=== PATIENT | female | born 1935 | race Caucasian/White ===

== ENCOUNTER 2019-07-19 15:22 | Inpatient (IN) | payer MEDICARE, OTHER ==
[2019-07-19] VITALS (9 sets, daily range): BP systolic 120–169; BP diastolic 59–76
[~2019-07-19] VITALS: Ht 167.6 cm; Wt 68.6 kg
[2019-07-19] MEDS ORDERED: ALBUTEROL SULFATE 2.5 MG/3 ML NEBU. NEB PRN (15:45)
[2019-07-19] MEDS ORDERED: HEPARIN 25,000UTS/250ML PREMIX 250 ML IV PRN (15:45)
[2019-07-19] MEDS ORDERED: IV NORMAL SALINE 1000ML BAG 1,000 ML IV SCH (15:45)
[2019-07-19] MEDS ORDERED: HEPARIN for IV BOLUS 10,000 UNIT/10 ML VIAL. IV PRN (15:45)
[2019-07-19] MEDS ORDERED: ACETAMINOPHEN 325 MG TABLET. PO PRN ×2 (15:45→16:45)
[2019-07-19] MEDS ORDERED: ONDANSETRON PF 4 MG/2 ML VIAL. IVP PRN (15:45)
[2019-07-19] MEDS ORDERED: AMITRIPTYLINE HCL 25 MG TABLET. PO PRN (15:45)
[2019-07-19] MEDS ORDERED: ALBU2.5V14 NEB (15:59)
[2019-07-19] MEDS ORDERED: OLME20TA17 PO (15:59)
[2019-07-19] MEDS ORDERED: TIOT18CA IH (15:59)
[2019-07-19] MEDS ORDERED: VENTOLIN HFA18 GM INH (15:59)
[2019-07-19] MEDS ORDERED: DILT60TA PO (15:59)
[2019-07-19] MEDS ORDERED: LOSA100T14 PO (15:59)
[2019-07-19] MEDS ORDERED: MOME13HF2 IH (15:59)
[2019-07-19] MEDS ORDERED: OXYC1TAB19 PO (15:59)
[2019-07-19] MEDS ORDERED: ALPR0.254 PO (15:59)
[2019-07-19] MEDS ORDERED: AMIT25TA PO (15:59)
[2019-07-19 16:05] LABS: HEMATOCRIT 35.7 % (36.0-47.0); HEMOGLOBIN 12.2 g/dL (12.0-15.5); RED BLOOD COUNT 3.77 x10^6/uL (3.50-5.40); RED CELL DISTRIBUTION WIDTH 13.5 % (11.5-14.5); WHITE BLOOD COUNT 7.8 x10^3/uL (4.0-11.0)
--- NOTE | 2019-07-19 16:12 | PDOC1 ---
History and Physical Date of Admission Date of Admission DATE: 07/19/19 TIME: 16:12 Identification/Chief Complaint Chief Complaint transfer here for treatment of NSTEMI AT [facility] with trop elevation 3.4, direct admit to icu Past Medical History Past Medical History SOCIAL HISTORY: long-standing smoking history. She does not drink alcohol or use recreational drugs. stopped smoking 3 yrs ago UNDER STRESS, Daughter had recent DUI CHARGE PMH HTN, CHOLECYSTECTOMY, ANXIETY family hx COPD Cardiovascular: CAD Pulmonary: COPD Psych: Anxiety Family History Family History: Chronic Bronchitis, Hypertension Social History Smoke: Quit ALCOHOL: none Drugs: None Current Medications Current Medications Current Medications Heparin Sodium/ Dextrose 250 ml @ 0 mls/hr CONT PRN IV PER PROTOCOL; Start 07/19/19 at 15:45; Status UNV Heparin Sodium (Porcine) (Heparin Sodium) 1,600 unit PRN Q6HRS PRN IV FOR UFH LEVEL LESS THAN 0.2; Start 07/19/19 at 15:45; Status UNV Sodium Chloride 1,000 ml @ 75 mls/hr [id number] IV ; Start 07/19/19 at 15:45 Ondansetron HCl (Zofran) 4 mg PRN Q4HRS PRN IVP NAUSEA/VOMITING; Start 07/19/19 at 15:45 Acetaminophen (Tylenol) 325 mg PRN Q6HRS PRN PO MILD PAIN / TEMP; Start 07/19/19 at 15:45 Albuterol Sulfate (Ventolin Neb Soln) 2.5 mg PRN Q4HRS PRN NEB SHORTNESS OF BREATH; Start 07/19/19 at 15:45 Methylprednisolone Sodium Succinate (SOLU-Medrol 125MG VIAL) 60 mg Q12HR IV ; Start 07/19/19 at 21:00 Lorazepam (Ativan) 0.5 mg TID PO ; Start 07/19/19 at 21:00 Aspirin (Children'S Aspirin) 81 mg DAILYWBKFT PO ; Start 07/20/19 at 08:00 Metoprolol Succinate (Toprol Xl) 50 mg DAILY PO ; Start 07/20/19 at 09:00 Amitriptyline HCl (Elavil) 25 mg PRN QHS PRN PO INSOMNIA; Start 07/19/19 at 15:45 Diltiazem HCl (Cardizem 24hr Cd) 120 mg DAILY PO ; Start 07/20/19 at 09:00 Losartan Potassium (Cozaar) 50 mg DAILY PO ; Start 07/20/19 at 09:00 Active Scripts Active Reported Losartan Potassium 100 Mg Tablet 100 Mg PO DAILY Alprazolam 0.25 Mg Tablet 1 Tab PO TID Ventolin Hfa Inhaler (Albuterol Sulfate) 18 Gm Hfa.aer.ad 2 Puff INH Q4HRS Albuterol Sulfate Conc Neb Soln (Albuterol Sulfate) 2.5 Mg/0.5 Ml Vial.neb 1 Vial NEB BID Spiriva (Tiotropium [place]) 18 Mcg Cap.w.dev 1 Cap IH DAILY Dulera 100 Mcg/5 Mcg Inhaler (Mometasone/Formoterol) 13 Gm Hfa.aer.ad 2 Puff IH BID Benicar (Olmesartan Medoxomil) 20 Mg Tablet 1 Tab PO DAILY 30 Days Diltiazem Hcl Tablet (Diltiazem Hcl) 60 Mg Tablet 120 Mg PO BID Amitriptyline Hcl 25 Mg Tablet 1 Tab PO QHS Percocet 7.5-325 Mg Tablet (Oxycodone/Acetaminophen) 1 Each Tablet 1 Tab PO QIDPRN PRN MDD 4 Tablet(s) 5 Days Allergies Allergies: Coded Allergies: lisinopril (Verified Allergy, Mild, cough, 03/28/15) ROS General: No: Chills, Night Sweats, Fatigue, Malaise, Appetite, Other PSYCHOLOGICAL ROS: YES: Anxiety, Depression Eyes: No Blurry vision, No Decreased vision, No Double vision, No Dry eyes, No Excessive tearing, No Eye Pain, No Itchy Eyes, No Loss of vision, No Photophobia, No Scotomata, No Uses contacts, No Uses glasses, No Other HEENT: No: Heacaches, Visual Changes, Hearing change, Nasal congestion, Nasal discharge, Oral lesions, Sinus pain, Sore Throat, Epistaxis, Sneezing, Snoring, Tinnitus, Vertigo, Vocal changes, Other Breast: No New/Changing Breast Lumps, No Nipple changes, No Nipple discharge, No Other Respiratory: YES: Cough; No: Hemoptysis, Orthopnea, Pleuritic Pain, Shortness of breath, SOB with excertion, Sputum Changes, Stridor, Tachypnea, Wheezing, Other Cardiovascular: No Chest Pain, No Palpitations, No Orthopnea, No Paroxysmal Noc. Dyspnea, No Edema, No Lt Headedness, No Other Gastrointestinal: No Nausea, No Vomiting, No Abdominal Pain, No Diarrhea, No Constipation, No Melena, No Hematochezia, No Other Genitourinary: No Dysuria, No Frequency, No Incontinence, No Hematuria, No R etention, No Discharge, No Urgency, No Pain, No Flank Pain, No Other, No , No , No , No , No , No , No Musculoskeletal: No Gait Disturbance, No Joint Pain, No Joint Stiffness, No Joint Swelling, No Muscle Pain, No Muscular Weakness, No Pain In:, No Swelling In:, No Other Neurological: No Behavorial Changes, No Bowel/Bladder ControlChng, No Confusion, No Dizziness, No Gait Disturbance, No Headaches, No Impaired Coord/balance, No Memory Loss, No Numbness/Tingling, No Seizures, No Speech Problems, No Tremors, No Visual Changes, No Weakness, No Other Physical Exam General: Alert, Oriented X3, Cooperative, No acute distress HEENT: PERRLA, EOMI, Mucous membr. moist/pink Lungs: Clear to auscultation, Normal air movement Heart: S1S2, RRR, no thrills, no gallops Breasts: Not examined Abdomen: Normal bowel sounds, Soft, No tenderness, No hepatosplenomegaly Rectal Exam: not examined PELVIC: Examination not indicated Extremities: No cyanosis Skin: No significant lesion Neuro: Normal speech, Sensation intact, Cranial nerves 3-12 NL Psych/Mental Status: Mental status NL, Mood NL Labs Labs Laboratory Tests Test 07/19/19 16:00 White Blood Count 7.8 x10^3/uL (4.0-11.0) Red Blood Count 3.77 x10^6/uL (3.50-5.40) Hemoglobin 12.2 g/dL (12.0-15.5) Hematocrit 35.7 % (36.0-47.0) Mean Corpuscular Volume 95 fL (79-100) Mean Corpuscular Hemoglobin 32 pg (25-35) Mean Corpuscular Hemoglobin Concent 34 g/dL (31-37) Red Cell Distribution Width 13.5 % (11.5-14.5) Platelet Count 296 x10^3/uL (140-400) Laboratory Tests Test 07/19/19 16:00 White Blood Count 7.8 x10^3/uL (4.0-11.0) Red Blood Count 3.77 x10^6/uL (3.50-5.40) Hemoglobin 12.2 g/dL (12.0-15.5) Hematocrit 35.7 % (36.0-47.0) Mean Corpuscular Volume 95 fL (79-100) Mean Corpuscular Hemoglobin 32 pg (25-35) Mean Corpuscular Hemoglobin Concent 34 g/dL (31-37) Red Cell Distribution Width 13.5 % (11.5-14.5) Platelet Count 296 x10^3/uL (140-400) VTE Prophylaxis Ordered VTE Prophylaxis Devices: No VTE Pharmacological Prophylaxi: Yes Assessment/Plan Assessment/Plan IMPRESSION 1. ACUTE NSTEMI 2. COPD hx 100 pack yrs 3. REMOTE tobacco abuse stopped 2016 4. 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 chronic hypercapnia, hx severe underlying chronic obstructive pulmonary disease contributing to the hypercapnia. 6. htn 7. chronic hypoxic resp failure plan admit icu bed cardiology consulted metoprolol 50mg po daily dvt prophylaxis o2 support cardiac cath in AM CONT HOME MEDS FLP 36 min cc time KAREY DÍAZ MD Jul 19, 2019 16:12
[2019-07-19] MEDS ORDERED: guaiFENesin ORAL 200 MG/10 ML LIQUID. PO PRN (16:45)
[2019-07-19] MEDS ORDERED: ONDANSETRON PF 4 MG/2 ML VIAL. IV PRN (16:45)
[2019-07-19] MEDS ORDERED: DOCUSATE SODIUM 100 MG CAPSULE. PO PRN (16:45)
[2019-07-19] MEDS ORDERED: 0.9 % SODIUM CHLORIDE 10 ML DISP.SYRIN. IV PRN (16:45)
[2019-07-19] MEDS: IV NORMAL SALINE 1000ML BAG 1,000 ML IV SCH (17:23)
[2019-07-19] MEDS: IPRATRPIUM/ALBUTEROL 0.5/2.5MG 3 ML NEBU. NEB SCH (20:00)
[2019-07-19] MEDS ORDERED: ENOXAPARIN 40 MG/0.4 ML SYRINGE. SQ SCH (21:00)
[2019-07-19] MEDS: LORazepam 0.5 MG TABLET PO SCH (21:00)
[2019-07-19] MEDS: methylPREDNISolone SOD SUCC PF 125 MG/2 ML VIAL. IV SCH (21:00)
[2019-07-20] VITALS (11 sets, daily range): BP systolic 74–147; BP diastolic 53–71
[2019-07-20 02:00] LABS: BASO % 0 % (0-3); EOS % 0 % (0-3); HEMATOCRIT 34.8 % (36.0-47.0); HEMOGLOBIN 11.8 g/dL (12.0-15.5); LYMPH # 0.8 x10^3/uL (1.0-4.8); LYMPH % 6 % (24-48); MEAN CORPUSCULAR HEMOGLOBIN 32 pg (25-35); MEAN CORPUSCULAR HGB CONC 34 g/dL (31-37); MEAN CORPUSCULAR VOLUME 95 fL (79-100); MONO # 0.3 x10^3/uL (0.0-1.1); MONO % 2 % (0-9); NEUT # 11.9 x10^3/uL (1.8-7.7); NEUT % 92 % (31-73); PLATELET COUNT 273 x10^3/uL (140-400); RED BLOOD COUNT 3.68 x10^6/uL (3.50-5.40); RED CELL DISTRIBUTION WIDTH 13.4 % (11.5-14.5)
[2019-07-20 02:15] LABS: ALBUMIN 2.4 g/dL (3.4-5.0); ALBUMIN/GLOBULIN RATIO 0.7 (1.0-1.7); CALCIUM 8.8 mg/dL (8.5-10.1); CREATININE 0.6 mg/dL (0.6-1.0); GFR 95.7; POTASSIUM 4.2 mmol/L (3.5-5.1); TOTAL BILIRUBIN 0.2 mg/dL (0.2-1.0); TOTAL PROTEIN 5.7 g/dL (6.4-8.2)
[2019-07-20 02:36] LABS: % BANDS 2 % (0-9); % LYMPHS 8 % (24-48); % MONOS 1 % (0-10); % SEGS 89 % (35-66); PLT ESTIMATE ADEQUATE (ADEQUATE); TOXIC GRANULATION SLIGHT
[2019-07-20] MEDS: IPRATRPIUM/ALBUTEROL 0.5/2.5MG 3 ML NEBU. NEB SCH ×7 (02:47→23:20)
[2019-07-20 07:44] LABS: PROTHROMBIN TIME PATIENT 13.2 SEC (11.7-14.0)
--- NOTE | 2019-07-20 08:38 | PDOC ---
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 Hypertension Respiratory failure History of Present Illness History of Present Illness [id number] Patient seen and examined in the ICU Chart reviewed Discussed with RN Patient's troponin was 3.4 at [facility] She is scheduled for cardiac catheter today Vitals/I&O Vitals/I&O: Vital Signs Date Time Temp Pulse Resp B/P (MAP) Pulse Ox O2 Delivery O2 Flow Rate FiO2 07/20/19 08:10 Nasal Cannula 2.5 07/20/19 08:04 97 07/20/19 07:15 97.6 82 32 140/59 (86) 97.6 I & O 07/19/19 07/19/19 07/20/19 14:59 22:59 06:59 Intake Total 117.6 ml 834.1 ml Output Total 1 ml 2 ml Balance 116.6 ml 832.1 ml Physical Exam General: Alert, Oriented X3, Cooperative, No acute distress Heart: Regular rate, Normal S1, Normal S2 Lungs: Wheezing Abdomen: Normal bowel sounds, Soft, No tenderness, No hepatosplenomegaly Extremities: No cyanosis Skin: No rashes, No significant lesion Labs Labs: Laboratory Tests Test 07/19/19 16:00 07/19/19 21:50 07/20/19 01:50 White Blood Count 7.8 x10^3/uL (4.0-11.0) 13.0 x10^3/uL (4.0-11.0) Red Blood Count 3.77 x10^6/uL (3.50-5.40) 3.68 x10^6/uL (3.50-5.40) Hemoglobin 12.2 g/dL (12.0-15.5) 11.8 g/dL (12.0-15.5) Hematocrit 35.7 % (36.0-47.0) 34.8 % (36.0-47.0) Mean Corpuscular Volume 95 fL (79-100) 95 fL (79-100) Mean Corpuscular Hemoglobin 32 pg (25-35) 32 pg (25-35) Mean Corpuscular Hemoglobin Concent 34 g/dL (31-37) 34 g/dL (31-37) Red Cell Distribution Width 13.5 % (11.5-14.5) 13.4 % (11.5-14.5) Platelet Count 296 x10^3/uL (140-400) 273 x10^3/uL (140-400) Heparin Anti-Xa Act, Unfractionated 0.34 IU/mL (0.30-0.70) 0.33 IU/mL (0.30-0.70) 0.34 IU/mL (0.30-0.70) Neutrophils (%) (Auto) 92 % (31-73) Lymphocytes (%) (Auto) 6 % (24-48) Monocytes (%) (Auto) 2 % (0-9) Eosinophils (%) (Auto) 0 % (0-3) Basophils (%) (Auto) 0 % (0-3) Neutrophils # (Auto) 11.9 x10^3/uL (1.8-7.7) Lymphocytes # (Auto) 0.8 x10^3/uL (1.0-4.8) Monocytes # (Auto) 0.3 x10^3/uL (0.0-1.1) Eosinophils # (Auto) 0.0 x10^3/uL (0.0-0.7) Basophils # (Auto) 0.0 x10^3/uL (0.0-0.2) Segmented Neutrophils % 89 % (35-66) Band Neutrophils % 2 % (0-9) Lymphocytes % 8 % (24-48) Monocytes % 1 % (0-10) Toxic Granulation Slight Platelet Estimate Adequate (ADEQUATE) Prothrombin Time 13.2 SEC (11.7-14.0) Prothromb Time International Ratio 1.0 (0.8-1.1) Sodium Level 136 mmol/L (136-145) Potassium Level 4.2 mmol/L (3.5-5.1) Chloride Level 99 mmol/L (98-107) Carbon Dioxide Level 33 mmol/L (21-32) Anion Gap 4 (6-14) Blood Urea Nitrogen 8 mg/dL (7-20) Creatinine 0.6 mg/dL (0.6-1.0) Estimated GFR (Cockcroft-Gault) 95.7 BUN/Creatinine Ratio 13 (6-20) Glucose Level 153 mg/dL (70-99) Calcium Level 8.8 mg/dL (8.5-10.1) Total Bilirubin 0.2 mg/dL (0.2-1.0) Aspartate Amino Transf (AST/SGOT) 17 U/L (15-37) Alanine Aminotransferase (ALT/SGPT) 16 U/L (14-59) Alkaline Phosphatase 52 U/L (46-116) Total Protein 5.7 g/dL (6.4-8.2) Albumin 2.4 g/dL (3.4-5.0) Albumin/Globulin Ratio 0.7 (1.0-1.7) Review of Systems Review of Systems: Complains of chest pressure complains of weakness Assessment and Plan Assessmemt and Plan Acute NSTEMI with elevated troponin of 3.4 COPD hx 100 pack yrs Remote tobacco abuse stopped 2016 Stress and anxiety// 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 Hypertension Respiratory failure Plan ICU monitoring Cardiac catheter toda Home meds Serial enzymes Serial EKGs DVT prophylaxis Full code Trend labs When necessary nitroglycerin Daily aspirin Cardiac cocktail if possible including statins SHY inhibitor's beta blockade Appreciate cardiology input Total time 31 minutes Comment Review of Relevant I have reviewed the following items madelin (where applicable) has been applied. Medications: Current Medications Medications (Trade) Dose Ordered Sig/Diya Route PRN Reason Start Time Stop Time Status Last Admin Dose Admin Methylprednisolone Sodium Succinate (SOLU-Medrol 125MG VIAL) 60 mg Q12HR IV 07/19/19 21:00 07/19/19 21:00 Lorazepam (Ativan) 0.5 mg TID PO 07/19/19 21:00 07/19/19 21:00 Sodium Chloride 1,000 ml @ 60 mls/hr [id number] IV 07/19/19 16:35 07/19/19 17:23 Albuterol/ Ipratropium (Duoneb) 3 ml Q4HRS NEB 07/19/19 20:00 07/20/19 08:01 RIANA HAHN III DO Jul 20, 2019 08:38
[2019-07-20] MEDS: LOSARTAN POTASSIUM 50 MG TABLET. PO SCH (08:51)
[2019-07-20] MEDS: ASPIRIN CHEWABLE 81 MG TABLET. PO SCH (08:52)
[2019-07-20] MEDS: METOPROLOL SUCC 24HR ER 50 MG TAB.ER.24H. PO SCH (08:52)
[2019-07-20] MEDS: methylPREDNISolone SOD SUCC PF 125 MG/2 ML VIAL. IV SCH ×2 (08:52→22:28)
[2019-07-20] MEDS: IV NORMAL SALINE 1000ML BAG 1,000 ML IV SCH ×3 (09:15→22:56)
[2019-07-20] MEDS: LORazepam 0.5 MG TABLET PO SCH (10:41)
[2019-07-20] MEDS ORDERED: IODIXANOL 320 MG/ML 100 ML VIAL. ONE (11:18)
[2019-07-20] MEDS ORDERED: LIDOCAINE 1% PF 2 ML VIAL. ONE (11:18)
[2019-07-20] MEDS ORDERED: MIDAZOLAM HCL/PF 2 MG/2 ML VIAL. ONE (11:21)
[2019-07-20] MEDS ORDERED: VERAPAMIL 5 MG/2 ML VIAL. ONE (11:21)
[2019-07-20] MEDS ORDERED: HEPARIN for IV BOLUS 10,000 UNIT/10 ML VIAL. ONE (11:21)
[2019-07-20] MEDS ORDERED: fentaNYL PF VIAL 100 MCG/2 ML VIAL ONE (11:21)
[2019-07-20] MEDS ORDERED: NITROGLYCERIN 200 MCG/2 ML SYRINGE FOR CATH/VASC LAB. ONE (11:22)
--- NOTE | 2019-07-20 11:22 | PDOC ---
MODERATE SEDATION ASSESSMENT RISKS/ALTERNATIVES Risks/Alternatives Risks and alternatives of this type of sedation and procedure discussed with: RISK/ALTERNATIVES: Patient H & P ON CHART H & P H & P on chart and reviewed for co-morbid conditions and appropriate labs. H&P ON CHART: Yes STATUS PREG STATUS ASSESSED: N/A MEDS/ALLERGIES REVIEWED Meds/Allergies Reviewed Medications and Allergies including time and route of recently administered narcotics and sedatives. MEDS/ALLERGIES REVIEWED: Yes ASA RATING ASA RATING: III AIRWAY ASSESSMENT Airway Assessment Airway patency, oral function limitations, presence of caps, crowns, dentures, partials, and ability to extend neck assessed. AIRWAY ASSESSMENT: Yes MALLAMPATI SCORE MALLAMPATI SCORE: II PRE-SEDATION ASSESSMENT PRE-SEDATION ASSESSMENT: Yes JAMES KENNEDY MD Jul 20, 2019 11:22
[2019-07-20] MEDS ORDERED: NITROGLYCERIN 200 MCG/2 ML SYRINGE FOR CATH/VASC LAB. IART ONE (11:45)
[2019-07-20] MEDS ORDERED: fentaNYL PF VIAL 100 MCG/2 ML VIAL IV ONE (11:45)
[2019-07-20] MEDS ORDERED: LIDOCAINE 1% PF 2 ML VIAL. INJ ONE (11:45)
[2019-07-20] MEDS ORDERED: IODIXANOL 320 MG/ML 100 ML VIAL. IART ONE (11:45)
[2019-07-20] MEDS ORDERED: VERAPAMIL 5 MG/2 ML VIAL. IART ONE (11:45)
[2019-07-20] MEDS ORDERED: HEPARIN for IV BOLUS 10,000 UNIT/10 ML VIAL. IART ONE (11:45)
[2019-07-20] MEDS ORDERED: MIDAZOLAM HCL/PF 2 MG/2 ML VIAL. IV ONE (11:45)
[2019-07-20] MEDS: IV 1/2 NORMAL SALINE 1,000 ML IV SCH ×2 (11:59→22:27)
[2019-07-20] MEDS ORDERED: 0.9 % SODIUM CHLORIDE 10 ML DISP.SYRIN. IV PRN (12:00)
[2019-07-20] MEDS ORDERED: CONTRAST GIVEN. MC PRN (12:00)
[2019-07-20] MEDS ORDERED: HEPARIN for IV BOLUS 10,000 UNIT/10 ML VIAL. IV ONE (12:00)
[2019-07-20] MEDS ORDERED: NITROGLYCERIN SUBLINGUAL 0.4 MG BOTTLE OF 25. SL PRN (12:00)
--- NOTE | 2019-07-20 12:16 | CARD ---
MR#: [id number] Date of Study: 07/20/2019 Ordering Physician: JAMES KENNEDY, Referring Physician: JAMES KENNEDY Tech: MAUREEN HERNANDEZ RTR APPROVED REPORT Technologist: MAUREEN HERNANDEZ RTR Nurse: Veronica Morrison RN Procedure(s) performed: 1. Left heart catheterization, selective coronary angiography and left ventr iculography via right transradial approach 2. Instant wave free ratio (IFR) measurement of left anterior descending artery stenosis MODERATE SEDATION TIME: 30 MIN FLUORO TIME: 4.4 MIN DOSE: 25.4 GYCM2 CONTRAST: 114CC VISI INDICATION The indication(s) include : non-STEMI . CSHA Clinical Frailty Scale CS Clinical Frailty Scale: Moderately Frail Heart Failure Heart Failure: No PROCEDURE NARRATIVE After explaining the risks, benefits and alternative options, informed consent was obtained from kate ent. Patient was brought to the cardiac Fire Safety Manager and right wrist was prepped and draped in the usual fashion after confirming a positive modified Mark's test. Arterial access was obtained in the righ t radial artery and a 6 [place] sheath was inserted. 6 [place] Julio César catheter was used to perform junior ective angiography of the left and right coronary arteries. 6 [place] pigtail catheter was used to pe rform left ventriculography. Since patient was found to have angiographically suspicious lesion invo lving the left anterior descending artery, a decision was made to perform physiologic assessment usin g Instant wave free ratio (IFR) measurement. The left main coronary artery was engaged with 6 [place] XB 3.5 guide catheter and the stenosis in the midsegment of LAD was crossed with a [place] Pr essureWire. IFR measurement was made that came back in significant at 0.95. Patient tolerated the pro cedure well. Hemostasis was achieved using TR band. There were no immediate complications. The fol lowing findings were noted. FINDINGS 1. Hemodynamics: Left ventricular end-diastolic pressure of 31 mmHg consistent with acute on chronic diastolic heart failure. No pullback gradient across the aortic valve. 2. Left ventriculography: Hyperdynamic left ventricle systolic function with ejection fraction estim ated at 75-80%. No significant mitral regurgitation seen. 3. Coronary angiography: a. The left main coronary artery arose from the left sinus of Valsalva, gave rise to the left anteri or descending and left circumflex arteries and did not show any significant stenosis. b. The left anterior descending artery showed calcified 40% stenosis in the midsegment there was phy siologically insignificant based on IFR measurement of 0.95. c. The left circumflex artery did not show any significant stenosis. d. The right coronary artery was a large and dominant vessel arising from the right sinus of Valsalv a that did not show any significant stenosis. Conclusion 1. Nonobstructive disease involving left anterior descending artery, conformed physiologically insig nificant based on IFR measurement 2. Hyperdynamic left ventricle systolic function with ejection fraction estimated at 75-80% Recommendations Patient's non-STEMI is most probably type 2/demand ischemia from acute on chronic hypoxic respiratory failure secondary to COPD exacerbation. Recommend medical management. Signed by : James Kennedy, Electronically Approved : 07/20/2019 12:15:58
--- NOTE | 2019-07-20 13:34 | PDOC ---
PULMONARY PROGRESS NOTES Vitals Vital Signs Date Time Temp Pulse Resp B/P (MAP) Pulse Ox O2 Delivery O2 Flow Rate FiO2 07/20/19 13:00 84 16 81/63 (69) 97 Nasal Cannula 3.0 07/20/19 12:20 98.0 98.0 General: Alert, No acute distress Lungs: Wheezing Cardiovascular: S1 Abdomen: Soft Extremities: No Edema Labs Laboratory Tests Test 07/19/19 16:00 07/19/19 21:50 07/20/19 01:50 White Blood Count 7.8 x10^3/uL (4.0-11.0) 13.0 x10^3/uL (4.0-11.0) Red Blood Count 3.77 x10^6/uL (3.50-5.40) 3.68 x10^6/uL (3.50-5.40) Hemoglobin 12.2 g/dL (12.0-15.5) 11.8 g/dL (12.0-15.5) Hematocrit 35.7 % (36.0-47.0) 34.8 % (36.0-47.0) Mean Corpuscular Volume 95 fL (79-100) 95 fL (79-100) Mean Corpuscular Hemoglobin 32 pg (25-35) 32 pg (25-35) Mean Corpuscular Hemoglobin Concent 34 g/dL (31-37) 34 g/dL (31-37) Red Cell Distribution Width 13.5 % (11.5-14.5) 13.4 % (11.5-14.5) Platelet Count 296 x10^3/uL (140-400) 273 x10^3/uL (140-400) Heparin Anti-Xa Act, Unfractionated 0.34 IU/mL (0.30-0.70) 0.33 IU/mL (0.30-0.70) 0.34 IU/mL (0.30-0.70) Neutrophils (%) (Auto) 92 % (31-73) Lymphocytes (%) (Auto) 6 % (24-48) Monocytes (%) (Auto) 2 % (0-9) Eosinophils (%) (Auto) 0 % (0-3) Basophils (%) (Auto) 0 % (0-3) Neutrophils # (Auto) 11.9 x10^3/uL (1.8-7.7) Lymphocytes # (Auto) 0.8 x10^3/uL (1.0-4.8) Monocytes # (Auto) 0.3 x10^3/uL (0.0-1.1) Eosinophils # (Auto) 0.0 x10^3/uL (0.0-0.7) Basophils # (Auto) 0.0 x10^3/uL (0.0-0.2) Segmented Neutrophils % 89 % (35-66) Band Neutrophils % 2 % (0-9) Lymphocytes % 8 % (24-48) Monocytes % 1 % (0-10) Toxic Granulation Slight Platelet Estimate Adequate (ADEQUATE) Prothrombin Time 13.2 SEC (11.7-14.0) Prothromb Time International Ratio 1.0 (0.8-1.1) Sodium Level 136 mmol/L (136-145) Potassium Level 4.2 mmol/L (3.5-5.1) Chloride Level 99 mmol/L (98-107) Carbon Dioxide Level 33 mmol/L (21-32) Anion Gap 4 (6-14) Blood Urea Nitrogen 8 mg/dL (7-20) Creatinine 0.6 mg/dL (0.6-1.0) Estimated GFR (Cockcroft-Gault) 95.7 BUN/Creatinine Ratio 13 (6-20) Glucose Level 153 mg/dL (70-99) Calcium Level 8.8 mg/dL (8.5-10.1) Total Bilirubin 0.2 mg/dL (0.2-1.0) Aspartate Amino Transf (AST/SGOT) 17 U/L (15-37) Alanine Aminotransferase (ALT/SGPT) 16 U/L (14-59) Alkaline Phosphatase 52 U/L (46-116) Total Protein 5.7 g/dL (6.4-8.2) Albumin 2.4 g/dL (3.4-5.0) Albumin/Globulin Ratio 0.7 (1.0-1.7) Laboratory Tests Test 07/19/19 16:00 07/19/19 21:50 07/20/19 01:50 White Blood Count 7.8 x10^3/uL (4.0-11.0) 13.0 x10^3/uL (4.0-11.0) Red Blood Count 3.77 x10^6/uL (3.50-5.40) 3.68 x10^6/uL (3.50-5.40) Hemoglobin 12.2 g/dL (12.0-15.5) 11.8 g/dL (12.0-15.5) Hematocrit 35.7 % (36.0-47.0) 34.8 % (36.0-47.0) Mean Corpuscular Volume 95 fL (79-100) 95 fL (79-100) Mean Corpuscular Hemoglobin 32 pg (25-35) 32 pg (25-35) Mean Corpuscular Hemoglobin Concent 34 g/dL (31-37) 34 g/dL (31-37) Red Cell Distribution Width 13.5 % (11.5-14.5) 13.4 % (11.5-14.5) Platelet Count 296 x10^3/uL (140-400) 273 x10^3/uL (140-400) Heparin Anti-Xa Act, Unfractionated 0.34 IU/mL (0.30-0.70) 0.33 IU/mL (0.30-0.70) 0.34 IU/mL (0.30-0.70) Neutrophils (%) (Auto) 92 % (31-73) Lymphocytes (%) (Auto) 6 % (24-48) Monocytes (%) (Auto) 2 % (0-9) Eosinophils (%) (Auto) 0 % (0-3) Basophils (%) (Auto) 0 % (0-3) Neutrophils # (Auto) 11.9 x10^3/uL (1.8-7.7) Lymphocytes # (Auto) 0.8 x10^3/uL (1.0-4.8) Monocytes # (Auto) 0.3 x10^3/uL (0.0-1.1) Eosinophils # (Auto) 0.0 x10^3/uL (0.0-0.7) Basophils # (Auto) 0.0 x10^3/uL (0.0-0.2) Segmented Neutrophils % 89 % (35-66) Band Neutrophils % 2 % (0-9) Lymphocytes % 8 % (24-48) Monocytes % 1 % (0-10) Toxic Granulation Slight Platelet Estimate Adequate (ADEQUATE) Prothrombin Time 13.2 SEC (11.7-14.0) Prothromb Time International Ratio 1.0 (0.8-1.1) Sodium Level 136 mmol/L (136-145) Potassium Level 4.2 mmol/L (3.5-5.1) Chloride Level 99 mmol/L (98-107) Carbon Dioxide Level 33 mmol/L (21-32) Anion Gap 4 (6-14) Blood Urea Nitrogen 8 mg/dL (7-20) Creatinine 0.6 mg/dL (0.6-1.0) Estimated GFR (Cockcroft-Gault) 95.7 BUN/Creatinine Ratio 13 (6-20) Glucose Level 153 mg/dL (70-99) Calcium Level 8.8 mg/dL (8.5-10.1) Total Bilirubin 0.2 mg/dL (0.2-1.0) Aspartate Amino Transf (AST/SGOT) 17 U/L (15-37) Alanine Aminotransferase (ALT/SGPT) 16 U/L (14-59) Alkaline Phosphatase 52 U/L (46-116) Total Protein 5.7 g/dL (6.4-8.2) Albumin 2.4 g/dL (3.4-5.0) Albumin/Globulin Ratio 0.7 (1.0-1.7) Medications Active Scripts Medications Dose Route/Sig Max Daily Dose Days Date Category Losartan Potassium 100 Mg Tablet 100 Mg PO DAILY 07/19/19 Reported Alprazolam 0.25 Mg Tablet 1 Tab PO TID 07/19/19 Reported Ventolin Hfa Inhaler (Albuterol Sulfate) 18 Gm Hfa.aer.ad 2 Puff INH Q4HRS 07/19/19 Reported Albuterol Sulfate Conc Neb Soln (Albuterol Sulfate) 2.5 Mg/0.5 Ml Vial.neb 1 Vial NEB BID 07/19/19 Reported Spiriva (Tiotropium [place]) 18 Mcg Cap.w.dev 1 Cap IH DAILY 07/19/19 Reported Dulera 100 Mcg/5 Mcg Inhaler (Mometasone/Formoterol) 13 Gm Hfa.aer.ad 2 Puff IH BID 07/19/19 Reported Benicar (Olmesartan Medoxomil) 20 Mg Tablet 1 Tab PO DAILY 30 1/26/20 Reported Diltiazem Hcl Tablet (Diltiazem Hcl) 60 Mg Tablet 120 Mg PO BID 07/19/19 Reported Amitriptyline Hcl 25 Mg Tablet 1 Tab PO QHS 07/19/19 Reported Percocet 7.5-325 Mg Tablet (Oxycodone/Acetaminophen) 1 Each Tablet 1 Tab PO QIDPRN PRN MDD 4 Tablet(s) 5 07/19/19 Reported Impression . full note dictated aecopd/resp failure agree with current rx thanks PRISCA ROMAN MD Jul 20, 2019 13:34
[2019-07-20] MEDS ORDERED: IV NORMAL SALINE 1000ML BAG 1,000 ML IV ONE (14:30)
--- NOTE | 2019-07-20 16:06 | NUR ---
SS following for discharge planning. SS reviewed pt chart. Pt is from home and is currently requiring oxygen. PT/OT ordered. SS will continue to follow for discharge planning.
[2019-07-20] MEDS: ALPRAZolam 0.25 MG TABLET PO PRN (22:28)
--- NOTE | 2019-07-21 00:50 | CONS ---
DATE OF CONSULTATION: 07/20/2019 ATTENDING PHYSICIAN: Dr. Valiente. CONSULTING PHYSICIAN: Dr. Roman. REASON FOR CONSULTATION: The patient is seen in pulmonary consultation at the request of Dr. Valiente for acute respiratory distress. HISTORY OF PRESENT ILLNESS: The patient is an 83-year-old with severe COPD with hypoxemic hypercapnic respiratory failure in the past with an FEV1 of 0.78 mL, presented to [facility] with acute onset of shortness of air, some wheezing and chest discomfort. She had an elevated troponin. She [facility]. 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 She also had a hyperdynamic left ventricular function of 75-80%. The patient is currently in the intensive care unit. She is better. She is on oxygen supplementation. She states that she normally wears 3 liters of oxygen at home. She had a cough, mostly nonproductive. No fever or chills. No nausea, vomiting, or diarrhea. PAST MEDICAL HISTORY: 1. Severe chronic obstructive pulmonary disease with previous hypoxemic hypercapnic respiratory failure. 2. Tobacco dependent, in remission. 3. Hypertension. 4. Anxiety disorder. PAST SURGICAL HISTORY: Status post cholecystectomy. CURRENT MEDICATIONS: List was reviewed. FAMILY HISTORY: COPD. SOCIAL HISTORY: She quit tobacco some years ago. REVIEW OF SYSTEMS: CONSTITUTIONAL: No fever or chills. EYES: No change in visual acuity. HENT: No nasal congestion or sore throat. PULMONARY: As indicated above. CARDIOVASCULAR: No chest pain. No pressure. GASTROINTESTINAL: No nausea, vomiting, or diarrhea. GENITOURINARY: No dysuria or frequency. MUSCULOSKELETAL: No localized muscle aches or joint pains. SKIN: No new skin rashes. NEUROLOGIC: No headaches, diplopia or blurred vision. PHYSICAL EXAMINATION: GENERAL: The patient was in the Intensive Care Unit, currently in no respiratory distress. She is on 2 liters of oxygen supplementation. HEENT: Eyes, the sclerae were nonicteric. NECK: Jugular venous distention was not elevated. No lymphadenopathy. CHEST: Full expansion. LUNGS: Poor airway flow with no wheezes. CARDIOVASCULAR: Regular rate and rhythm with S1, S2, no S3. ABDOMEN: Soft, nontender. EXTREMITIES: No clubbing, cyanosis or edema. NEUROLOGICAL: The patient was awake, alert, following commands. A detailed neuro exam was not performed. LABORATORY DATA: Reviewed. White count was 13,000, hemoglobin of 11, hematocrit noted. Electrolytes were noted. Albumin was low. Chest x-ray from [facility] reviewed, no acute infiltrates, cardiomegaly present. IMPRESSION: 1. Acute on chronic hypoxemic respiratory failure. 2. Non-ST segment elevation myocardial infarction. 3. Acute exacerbation of chronic obstructive pulmonary disease. 4. 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 5. Tobacco dependence, in remission. 6. Anxiety. 7. Protein malnutrition, present upon admission. 8. Leukocytosis, suspect reactive. PLAN: 1. We will continue support with oxygen supplementation. 2. IV steroids. 3. No need for antibiotics. 4. Follow Cardiology input. 5. P.r.n. antianxiolytic. I do appreciate the privilege in sharing in the patient's care. Total cumulative critical care time of 45 minutes reviewing the data, chest x-ray, labs, and formulating a plan. PRISCA ROMAN MD DR: MARIANO/esperanza JOB#: [id number] / [id number]
[2019-07-21 02:13] LABS: CHOLESTEROL/HDL RATIO 2.2
[2019-07-21 03:05] VITALS: BP 108/57
[2019-07-21] MEDS: IPRATRPIUM/ALBUTEROL 0.5/2.5MG 3 ML NEBU. NEB SCH ×3 (03:35→13:00)
[2019-07-21 07:00] VITALS: BP 112/68
--- NOTE | 2019-07-21 08:42 | PDOC ---
PULMONARY PROGRESS NOTES Vitals Vital Signs Date Time Temp Pulse Resp B/P (MAP) Pulse Ox O2 Delivery O2 Flow Rate FiO2 07/21/19 08:02 98 Nasal Cannula 3.0 07/21/19 03:05 97.7 84 20 108/57 (74) 97.7 General: Alert, No acute distress Lungs: Wheezing Cardiovascular: S1 Abdomen: Soft Extremities: No Edema Labs Laboratory Tests Test 07/19/19 16:00 07/19/19 21:50 07/20/19 01:50 White Blood Count 7.8 x10^3/uL (4.0-11.0) 13.0 x10^3/uL (4.0-11.0) Red Blood Count 3.77 x10^6/uL (3.50-5.40) 3.68 x10^6/uL (3.50-5.40) Hemoglobin 12.2 g/dL (12.0-15.5) 11.8 g/dL (12.0-15.5) Hematocrit 35.7 % (36.0-47.0) 34.8 % (36.0-47.0) Mean Corpuscular Volume 95 fL (79-100) 95 fL (79-100) Mean Corpuscular Hemoglobin 32 pg (25-35) 32 pg (25-35) Mean Corpuscular Hemoglobin Concent 34 g/dL (31-37) 34 g/dL (31-37) Red Cell Distribution Width 13.5 % (11.5-14.5) 13.4 % (11.5-14.5) Platelet Count 296 x10^3/uL (140-400) 273 x10^3/uL (140-400) Heparin Anti-Xa Act, Unfractionated 0.34 IU/mL (0.30-0.70) 0.33 IU/mL (0.30-0.70) 0.34 IU/mL (0.30-0.70) Neutrophils (%) (Auto) 92 % (31-73) Lymphocytes (%) (Auto) 6 % (24-48) Monocytes (%) (Auto) 2 % (0-9) Eosinophils (%) (Auto) 0 % (0-3) Basophils (%) (Auto) 0 % (0-3) Neutrophils # (Auto) 11.9 x10^3/uL (1.8-7.7) Lymphocytes # (Auto) 0.8 x10^3/uL (1.0-4.8) Monocytes # (Auto) 0.3 x10^3/uL (0.0-1.1) Eosinophils # (Auto) 0.0 x10^3/uL (0.0-0.7) Basophils # (Auto) 0.0 x10^3/uL (0.0-0.2) Segmented Neutrophils % 89 % (35-66) Band Neutrophils % 2 % (0-9) Lymphocytes % 8 % (24-48) Monocytes % 1 % (0-10) Toxic Granulation Slight Platelet Estimate Adequate (ADEQUATE) Prothrombin Time 13.2 SEC (11.7-14.0) Prothromb Time International Ratio 1.0 (0.8-1.1) Sodium Level 136 mmol/L (136-145) Potassium Level 4.2 mmol/L (3.5-5.1) Chloride Level 99 mmol/L (98-107) Carbon Dioxide Level 33 mmol/L (21-32) Anion Gap 4 (6-14) Blood Urea Nitrogen 8 mg/dL (7-20) Creatinine 0.6 mg/dL (0.6-1.0) Estimated GFR (Cockcroft-Gault) 95.7 BUN/Creatinine Ratio 13 (6-20) Glucose Level 153 mg/dL (70-99) Calcium Level 8.8 mg/dL (8.5-10.1) Total Bilirubin 0.2 mg/dL (0.2-1.0) Aspartate Amino Transf (AST/SGOT) 17 U/L (15-37) Alanine Aminotransferase (ALT/SGPT) 16 U/L (14-59) Alkaline Phosphatase 52 U/L (46-116) Total Protein 5.7 g/dL (6.4-8.2) Albumin 2.4 g/dL (3.4-5.0) Albumin/Globulin Ratio 0.7 (1.0-1.7) Triglycerides Level 40 mg/dL (0-150) Cholesterol Level 177 mg/dL (0-200) LDL Cholesterol, Calculated 88 mg/dL (0-100) VLDL Cholesterol, Calculated 8 mg/dL (0-40) Non-HDL Cholesterol Calculated 96 mg/dL (0-129) HDL Cholesterol 81 mg/dL (40-60) Cholesterol/HDL Ratio 2.2 Medications Active Scripts Medications Dose Route/Sig Max Daily Dose Days Date Category Losartan Potassium 100 Mg Tablet 100 Mg PO DAILY 07/19/19 Reported Alprazolam 0.25 Mg Tablet 1 Tab PO TID 07/19/19 Reported Ventolin Hfa Inhaler (Albuterol Sulfate) 18 Gm Hfa.aer.ad 2 Puff INH Q4HRS 07/19/19 Reported Albuterol Sulfate Conc Neb Soln (Albuterol Sulfate) 2.5 Mg/0.5 Ml Vial.neb 1 Vial NEB BID 07/19/19 Reported Spiriva (Tiotropium [place]) 18 Mcg Cap.w.dev 1 Cap IH DAILY 07/19/19 Reported Dulera 100 Mcg/5 Mcg Inhaler (Mometasone/Formoterol) 13 Gm Hfa.aer.ad 2 Puff IH BID 07/19/19 Reported Benicar (Olmesartan Medoxomil) 20 Mg Tablet 1 Tab PO DAILY 30 07/19/19 Reported Diltiazem Hcl Tablet (Diltiazem Hcl) 60 Mg Tablet 120 Mg PO BID 07/19/19 Reported Amitriptyline Hcl 25 Mg Tablet 1 Tab PO QHS 07/19/19 Reported Percocet 7.5-325 Mg Tablet (Oxycodone/Acetaminophen) 1 Each Tablet 1 Tab PO QIDPRN PRN MDD 4 Tablet(s) 5 07/19/19 Reported Impression . IMPRESSION: 1. Acute on chronic hypoxemic respiratory failure. 2. Non-ST segment elevation myocardial infarction. 3. Acute exacerbation of chronic obstructive pulmonary disease. 4. 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 5. Tobacco dependence, in remission. 6. Anxiety. 7. Protein malnutrition, present upon admission. 8. Leukocytosis, suspect reactive. Plan . 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
[2019-07-21] MEDS: ASPIRIN CHEWABLE 81 MG TABLET. PO SCH (08:47)
[2019-07-21] MEDS: methylPREDNISolone SOD SUCC PF 125 MG/2 ML VIAL. IV SCH (08:48)
[2019-07-21] MEDS: ALPRAZolam 0.25 MG TABLET PO PRN (08:54)
[2019-07-21] MEDS: LOSARTAN POTASSIUM 50 MG TABLET. PO SCH (10:18)
[2019-07-21] MEDS: METOPROLOL SUCC 24HR ER 50 MG TAB.ER.24H. PO SCH (10:19)
--- NOTE | 2019-07-21 10:47 | PDOC ---
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 Hypertension Respiratory failure History of Present Illness History of Present Illness 07/21/19 Patient seen and examined She is sitting up in bed She continues to experience SOB when walking, she denies chest pain no new complaints today nurse [id number] Patient seen and examined in the ICU Chart reviewed Discussed with RN Patient's troponin was 3.4 at [facility] She is scheduled for cardiac catheter today Vitals/I&O Vitals/I&O: Vital Signs Date Time Temp Pulse Resp B/P (MAP) Pulse Ox O2 Delivery O2 Flow Rate FiO2 07/21/19 10:19 92 167/70 07/21/19 08:02 98 Nasal Cannula 3.0 07/21/19 07:00 97.9 20 97.9 I & O 07/20/19 07/20/19 07/21/19 15:00 23:00 07:00 Intake Total 500 ml 700 ml 400 ml Output Total 0 ml 2 ml 550 ml Balance 500 ml 698 ml -150 ml Physical Exam General: Alert, Oriented X3, Cooperative, No acute distress Heart: Regular rate, Normal S1, Normal S2 Lungs: Wheezing Abdomen: Normal bowel sounds, Soft, No tenderness, No hepatosplenomegaly Extremities: No cyanosis Skin: No rashes, No significant lesion Review of Systems Review of Systems: Denies N/V Denies numbness or tingling Assessment and Plan Assessmemt and Plan Assessment Acute NSTEMI with elevated troponin of 3.4 COPD hx 100 pack yrs Remote tobacco abuse stopped 2016 Stress and anxiety// 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 Hypertension Respiratory failure Plan Home meds Serial enzymes Continue Steroids and Duoneb Serial EKGs DVT prophylaxis Full code Trend labs When necessary nitroglycerin Daily aspirin Comment Review of Relevant I have reviewed the following items madelin (where applicable) has been applied. Medications: Current Medications Medications (Trade) Dose Ordered Sig/Diya Route PRN Reason Start Time Stop Time Status Last Admin Dose Admin Nitroglycerin (Nitroglycerin) 200 mcg 1X ONCE IART 07/20/19 11:45 07/20/19 11:46 DC 07/20/19 11:45 Verapamil HCl (Verapamil) 2.5 mg 1X ONCE IART 07/20/19 11:45 07/20/19 11:46 DC 07/20/19 11:45 Heparin Sodium (Porcine) (Heparin Sodium) 2,500 unit 1X ONCE IART 07/20/19 11:45 07/20/19 11:46 DC 07/20/19 11:45 Heparin Sodium/ Sodium Chloride (HEPARIN for ARTERIAL LINE FLUSH) 1,000 unit 1X ONCE IART 07/20/19 11:45 07/20/19 11:46 DC 07/20/19 11:45 Heparin Sodium/ Sodium Chloride (HEPARIN for ARTERIAL LINE FLUSH) 1,000 unit 1X ONCE IART 07/20/19 11:45 07/20/19 11:46 DC 07/20/19 11:45 Midazolam HCl (Versed) 2 mg 1X ONCE IV 07/20/19 11:45 07/20/19 11:46 DC 07/20/19 11:45 Fentanyl Citrate (Fentanyl 2ml Vial) 100 mcg 1X ONCE IV 07/20/19 11:45 07/20/19 11:46 DC 07/20/19 11:45 Iodixanol (Visipaque 320) 100 ml 1X ONCE IART 07/20/19 11:45 07/20/19 11:46 DC 07/20/19 11:45 Lidocaine HCl (Xylocaine-Mpf 1% 2ml Vial) 2 ml 1X ONCE INJ 07/20/19 11:45 07/20/19 11:46 DC 07/20/19 11:45 Heparin Sodium (Porcine) (Heparin Sodium) 4,000 unit 1X ONCE IV 07/20/19 12:00 07/20/19 12:01 DC 07/20/19 11:56 Sodium Chloride 1,000 ml @ 60 mls/hr [id number] IV 07/20/19 11:59 07/20/19 22:27 Sodium Chloride 1,000 ml @ 1,000 mls/hr 1X ONCE IV 07/20/19 14:30 07/20/19 15:29 DC 07/20/19 14:23 Alprazolam (Xanax) 0.25 mg PRN Q8HRS PRN PO ANXIETY / AGITATION 07/20/19 14:30 07/21/19 08:54 RIANA HAHN K III DO Jul 21, 2019 10:47
[2019-07-21 11:00] VITALS: BP 155/70
--- NOTE | 2019-07-21 12:11 | RAD ---
MR#: [id number] Date of Study: 07/21/2019 Ordering Physician: CAMDEN GOMEZ, Referring Physician: CAMDEN GOMEZ, Tech: Yanelis Harrell, SANDRA, RVT, RTR APPROVED REPORT Patient Location: IN-PATIENT Indications Significant Blood Pressure Difference between arms Waveforms Right Left Prox Mid Distal Prox Mid Distal Subcl. Bm-yqetkeQu-yqklevPepqf. Iqnv-hbntfeUwll-euxfhp Axillary Axillary [place]-phasic Brachial Brachial Ughi-ibwozeNiyt-liqbxsNacy-phasic Radial Radial Pqrq-geonrjBogo-okghtv Ulnar Ulnar Edvh-pxncswBhzt-zzadkf Velocities Right Left Prox Mid Distal Prox Mid Distal Subcl. 136.7cm/s170.4cm/sSubcl. 59.5cm/s43.4cm/s Axillary Axillary 54.5cm/s Brachial Brachial 61.1cm/s57.4cm/s58.7cm/s Radial Radial 41.6cm/s40.2cm/s Ulnar Ulnar 52.5cm/s45.1cm/s Findings Grayscale images of the left subclavian artery and the left arm vessels demonstrate mild diffuse inti mal hyperplasia and plaque. Spectral waveforms are monophasic in the left upper extremity suggestive either of more proximal dise ase versus diffuse loss of elasticity due to age and calcification The subclavian, brachial, axillary, ulnar, radial arteries are widely patent. Velocities are nonethel ess diminished. No focal high-grade subclavian disease is noted although the more ostial and proximal subclavian artery were not well visualized. The right subclavian velocities are within normal limits . The left carotid artery demonstrates normal flow velocities. The left vertebral artery demonstrates retrograde flow and this may suggest ostial and proximal nonvi sualized subclavian disease Critical Notification Critical Value: No <Conclusion> 1. Diminished flow in the left arm vessels but the vessels are widely patent. 2. Monophasic wave pattern in the left arm velocities with retrograde flow in the vertebral artery bryant ggestive more ostial/proximal nonvisualized subclavian disease. Signed by : Lisandro Silva, Electronically Approved : 07/21/2019 12:11:13
[2019-07-21] MEDS ORDERED: DILT240C33 PO (14:58)
[2019-07-21] MEDS ORDERED: ATOR20TA58 PO (14:59)
[2019-07-21] MEDS ORDERED: ASPI81TA59 PO (14:59)
[2019-07-21] MEDS ORDERED: METO-239 PO (14:59)
[2019-07-21] MEDS ORDERED: LOSA-73 PO (14:59)
[2019-07-21] MEDS ORDERED: PANT40TA77 PO (15:38)
--- NOTE | 2019-07-21 16:05 | NUR ---
Discharge Note: MARYANN MORGAN Discharge instructions and discharge home medications reviewed with Patient and a copy given. All questions have been answered and understanding verbalized. The following instructions and handouts were given: CAD Discontinued lines and drains: 20 R AC, 20 L AC Patient discharged to Home with self care
--- NOTE | 2019-07-21 16:39 | PDOC ---
CAMDEN GOMEZ PENOLOGY TEACHER 07/21/19 1639: CARDIO Progress Notes Date and Time Date of Service 07/21/2019 Time of Evaluation 1210 Subjective Subjective: No Chest Pain, No shortness of breath, No Palpitations Vitals Vitals Vital Signs Date Time Temp Pulse Resp B/P (MAP) Pulse Ox O2 Delivery O2 Flow Rate FiO2 07/21/19 13:01 Nasal Cannula 3.0 07/21/19 11:00 98.3 88 20 155/70 (98) 96 98.3 Weight Weight [ ] Input and Output Intake and Output Intake and Output 07/21/19 07:00 Intake Total 1600 ml Output Total 552 ml Balance 1048 ml Intake Oral 1600 ml Output Urine Total 552 ml Physical Exam HEENT: Neck Supple W Full Motion Chest: Symmetric LUNGS: Clear to Auscultation Heart: RRR (SR), murmurs (4/6 sytolic murmur to LLS border) Abdomen: Soft N/T Extremities: No Calf Tenderness Neurology: alert, oriented, follow commands Other Exams right wrist arteriomtomy site intact, no erythema or hematoma, neurovascular status to right hand intact. Assessment Assessment 1. Acute on chronic hypoxemic respiratory failure with AECOPD. SOA better 2. NSTEMI: demand mediated, type 2 3. 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 Hyperdynamic LV: EF at 75-80% 5. HTN: better 6. Suspect chronic diastolic CHF Recommendations 1. ASA. start on lipitor. Continue losartan, lopressor and cardizem. HBPM, adjust BP regimen as an outpt 2. Continue pulmonary measures. 3. Follow up in office JAMES KENNEDY MD 07/21/19 194: CARDIO Progress Notes Assessment Assessment Patient seen and examined. Agree with GAMMA FACILITIES OPERATOR's assessment and plan. Ac COPD exacerbation improved Cardiac cath results noted above US c/w subclavian stenosis but patient does not have symptoms suggestive of subclavian steal We will readdress this as outpatient CAMDEN GOMEZ APRN Jul 21, 2019 16:39 JAMES KENNEDY MD Jul 21, 2019 19:41
[2019-07-21] MEDS ORDERED: ATORVASTATIN CALCIUM 20 MG TABLET PO SCH (21:00)
== END 2019-07-21 16:10 | disposition home or self-care (01) | DRG 189 ==
LOC: 1 WEST ICU 15:22 → 2 SOUTH 07-20 20:21
PROVIDERS: ADMIT Family Medicine; ATTEND Family Medicine
PROC: 4A023N7 Measurement of Cardiac Sampling and Pressure, Left Heart, Percutaneous Approach (ICD-10-PCS; principal; 2019-07-20)
PROC: B211YZZ Fluoroscopy of Multiple Coronary Arteries using Other Contrast (ICD-10-PCS; 2019-07-20)
PROC: B215YZZ Fluoroscopy of Left Heart using Other Contrast (ICD-10-PCS; 2019-07-20)
DX: J96.21 Acute and chronic respiratory failure with hypoxia (principal); I21.A1 Myocardial infarction type 2; J44.1 Chronic obstructive pulmonary disease with (acute) exacerbation; E46 Unspecified protein-calorie malnutrition; J96.22 Acute and chronic respiratory failure with hypercapnia; I10 Essential (primary) hypertension; F41.9 Anxiety disorder, unspecified; I70.8 Atherosclerosis of other arteries; I25.10 Atherosclerotic heart disease of native coronary artery without angina pectoris; F32.9 Major depressive disorder, single episode, unspecified; F17.201 Nicotine dependence, unspecified, in remission; D72.829 Elevated white blood cell count, unspecified; Z60.9 Problem related to social environment, unspecified; Z68.24 Body mass index [BMI] 24.0-24.9, adult; Z79.52 Long term (current) use of systemic steroids; Z90.49 Acquired absence of other specified parts of digestive tract; Z99.81 Dependence on supplemental oxygen; Z73.3 Stress, not elsewhere classified; Z88.8 Allergy status to other drugs, medicaments and biological substances; Z82.5 Family history of asthma and other chronic lower respiratory diseases; Z82.49 Family history of ischemic heart disease and other diseases of the circulatory system
CPT/HCPCS: 36415; 80053; 80061; 85007; 85025; 85027; 85520; 85610; 93458; 93571; 93931; 94640; 94760; 96361; 96374; 96375; 99152; 99153; C1769; C1887; C1892; J1644; J2250; J2930; J3010; J3490; J7030; J7620; Q9967; 99285-25; G0378